=== PATIENT | male | born 1960 | race Caucasian/White ===

== ENCOUNTER 2017-05-26 11:45 | Inpatient (IN) | payer BC ==
[2017-05-26] VITALS (13 sets, daily range): BP systolic 115–152; BP diastolic 67–97
[~2017-05-26] VITALS: Ht 177.8 cm; Wt 87.7 kg
[2017-05-26 12:49] LABS: BASOPHILS % (AUTO) 0.3 % (0-1); EOSINOPHILS # (AUTO) 0.2 X10'3 (0-0.9); EOSINOPHILS % (AUTO) 2.8 % (0-6); HEMATOCRIT 42.6 % (42.0-52.0); HEMOGLOBIN 14.9 g/dl (14.0-17.9); LYMPHOCYTES # (AUTO) 1.6 X10'3 (1.1-4.8); LYMPHOCYTES % (AUTO) 19.1 % (21-51); MEAN CORPUSCULAR HEMOGLOBIN 30.3 PG (27.0-31.0); MEAN CORPUSCULAR HGB CONC 34.9 % (33.0-36.5); MEAN CORPUSCULAR VOLUME 86.9 FL (78-98); MEAN PLATELET VOLUME 9.4 FL (7.4-10.4); MONOCYTES # (AUTO) 0.8 X10'3 (0-0.9); MONOCYTES % (AUTO) 9.3 % (2-12); NEUTROPHILS # (AUTO) 5.8 X10'3 (1.8-7.7); NEUTROPHILS % (AUTO) 68.5 % (42-75); PLATELET COUNT 189 X10'3 (140-440); RED CELL DISTRIBUTION WIDTH 14.4 % (11.5-14.5); WHITE BLOOD COUNT 8.5 X10'3 (4.5-11.0)
[2017-05-26 13:04] LABS: ALANINE AMINOTRANSFERASE 29 U/L (12-78); ALBUMIN 3.6 G/DL (3.4-5.0); ALBUMIN/GLOBULIN RATIO 0.9 (1.1-1.5); ALKALINE PHOSPHATASE 58 IU/L (46-116); ANION GAP 10 (8-16); ASPARTATE AMINO TRANSFERASE 17 U/L (10-37); BILIRUBIN,TOTAL 0.4 MG/DL (0.1-1.0); BLOOD UREA NITROGEN 24 MG/DL (7-18); BUN/CREATININE RATIO 25.5 (5.4-32.0); CALCIUM 8.9 MG/DL (8.5-10.1); CHLORIDE 106 MMOL/L (99-107); CREATININE 0.94 MG/DL (0.60-1.10); GLUCOSE 102 MG/DL (70-104); POTASSIUM 4.1 MMOL/L (3.5-5.1); SODIUM 142 MMOL/L (135-145); TOTAL CARBON DIOXIDE 26.4 MMOL/L (24-32); TOTAL PROTEIN 7.4 G/DL (6.4-8.2); eGFR 82 ML/MIN
[2017-05-26 13:12] LABS: CLARITY,URINE CLEAR (Clear); COLOR,URINE YELLOW (Yellow); GLUCOSE, URINE NEGATIVE (Neg); KETONES,URINE NEGATIVE (Neg); LEUKOCYTE ESTERASE ,URINE NEGATIVE (Neg); NITRITES, URINE NEGATIVE (Neg); OCCULT BLOOD,URINE NEGATIVE (Neg); PROTEIN,URINE NEGATIVE (Neg)
[2017-05-26 13:21] LABS: UA COLLECTION TYPE VOIDED
[2017-05-26 13:31] LABS: LIPASE 76 U/L (73-393)
[2017-05-26] MEDS ORDERED: normal saline 1000ml 1,000 ML IV ONE (14:58)
[2017-05-26] MEDS ORDERED: piperacillin/tazo 3.375gm/50ml 50 ML IV ONE (15:00)
[2017-05-26] MEDS ORDERED: normal saline 1000ML IV soln IVB ONE (15:00)
[2017-05-26] MEDS ORDERED: magnesium 2GM in 50ml NS 50 ML IV PRN (15:15)
[2017-05-26] MEDS ORDERED: HYDROmorphone 1 mg/ml syringe IV PRN (15:15)
[2017-05-26] MEDS ORDERED: magnesium 4gm in 100ml NS 100 ML IV PRN (15:15)
[2017-05-26] MEDS ORDERED: potassium Cl 40MEQ/NS 500ml 500 ML IV PRN ×2 (15:15)
[2017-05-26] MEDS ORDERED: ondansetron/PF 4mg/2ml inj IV PRN ×3 (15:15→18:05)
[2017-05-26] MEDS ORDERED: mag hydrox/Alum hydrox/simeth 30ml oral suspension PO PRN (15:15)
[2017-05-26] MEDS ORDERED: magnesium hydroxide 30ml (MOM) UD suspension PO PRN (15:15)
[2017-05-26] MEDS ORDERED: potassium Cl 20 mEq SR tablet PO PRN ×2 (15:15)
[2017-05-26] MEDS ORDERED: magnesium Cl slow-release 64mg tablet PO PRN (15:15)
[2017-05-26] MEDS ORDERED: ATOR40TA PO (15:24)
[2017-05-26] MEDS: metroNIDAZOLE-Flagyl 500mg/NS 100 ML IV SCH ×2 (15:50→23:34)
[2017-05-26] MEDS: normal saline 1000ml 1,000 ML IV SCH ×2 (15:50→21:07)
[2017-05-26] MEDS ORDERED: BUPIVAcaine/PF 2.5 mg/ml (0.25%) 30ml vial ONE (16:23)
[2017-05-26] MEDS ORDERED: ringers solution, lacted 1,000 ML IV SCH (16:37)
[2017-05-26] MEDS ORDERED: meperidine/PF 50mg/ml syringe IV PRN ×3 (16:40)
[2017-05-26] MEDS ORDERED: proCHLORperazine 10 MG/2 ml inj IV PRN (16:40)
[2017-05-26] MEDS ORDERED: morphine 2 MG/ML inj. syringe IV PRN ×2 (16:40)
[2017-05-26] MEDS ORDERED: sevoflurane 250ml liquid IH ONE (16:53)
[2017-05-26] MEDS ORDERED: neostigmine methylsulfate 1 MG/ML 10ml vial ONE (16:53)
[2017-05-26] MEDS ORDERED: glycopyrrolate 0.2mg/ml inj ONE (16:53)
[2017-05-26] MEDS ORDERED: fentaNYL/PF 50MCG/1 ML 2ML syringe ONE (16:58)
[2017-05-26] MEDS ORDERED: midazolam 2 mg/2 ml injection ONE (16:58)
[2017-05-26] MEDS ORDERED: propofol inj 20 ML IV ONE (17:08)
[2017-05-26] MEDS ORDERED: ceFOXitin 1000 MG inj ONE ×2 (17:08)
[2017-05-26] MEDS ORDERED: rocuronium 10mg/ml inj IV ONE (17:08)
[2017-05-26] MEDS ORDERED: ketorolac tromethamine 15mg/ml inj. IV PRN (18:05)
[2017-05-26] MEDS ORDERED: HYDROmorphone inj. 0.5 MG/0.5 ML DISP.SYRIN IV ONE (18:05)
[2017-05-26] MEDS: HYDROmorphone inj. 0.5 MG/0.5 ML DISP.SYRIN IV PRN (19:15)
[2017-05-26] MEDS ORDERED: ceFOXitin 2 GM ADDvantage bag 100 ML IV SCH (20:00)
[2017-05-26] MEDS ORDERED: non-formulary drug (Atorvastatin Calcium* (Lipitor*) 1 TABLET) PO SCH (21:00)
[2017-05-26] MEDS: atorvastatin 20mg tablet PO SCH (21:03)
[2017-05-26] MEDS: levoFLOXACIN-Levaquin 500mg/D5 100 ML IV SCH (21:03)
[2017-05-27] VITALS: BP 115/65
[2017-05-27] MEDS: ceFOXitin 1 GM ADDVANTAGE BAG 1,000 MG in normal saline 100ml IV soln 100 ML IV SCH ×2 (01:24→12:00)
[2017-05-27 04:00] VITALS: BP 138/74
[2017-05-27 04:48] LABS: BASOPHILS % (AUTO) 0.5 % (0-1); EOSINOPHILS # (AUTO) 0.2 X10'3 (0-0.9); EOSINOPHILS % (AUTO) 1.8 % (0-6); HEMATOCRIT 37.2 % (42.0-52.0); HEMOGLOBIN 12.8 g/dl (14.0-17.9); LYMPHOCYTES % (AUTO) 10.9 % (21-51); MEAN CORPUSCULAR HEMOGLOBIN 30.2 PG (27.0-31.0); MEAN CORPUSCULAR HGB CONC 34.4 % (33.0-36.5); MEAN CORPUSCULAR VOLUME 87.8 FL (78-98); MEAN PLATELET VOLUME 8.9 FL (7.4-10.4); MONOCYTES # (AUTO) 0.8 X10'3 (0-0.9); MONOCYTES % (AUTO) 8.5 % (2-12); NEUTROPHILS # (AUTO) 7.2 X10'3 (1.8-7.7); NEUTROPHILS % (AUTO) 78.3 % (42-75); PLATELET COUNT 171 X10'3 (140-440); RED BLOOD COUNT 4.24 X10'6 (4.70-6.10); RED CELL DISTRIBUTION WIDTH 14.1 % (11.5-14.5); WHITE BLOOD COUNT 9.2 X10'3 (4.5-11.0)
[2017-05-27 05:21] LABS: ALANINE AMINOTRANSFERASE 27 U/L (12-78); ALBUMIN 2.9 G/DL (3.4-5.0); ALBUMIN/GLOBULIN RATIO 0.9 (1.1-1.5); ALKALINE PHOSPHATASE 47 IU/L (46-116); ANION GAP 9 (8-16); ASPARTATE AMINO TRANSFERASE 17 U/L (10-37); BILIRUBIN,TOTAL 0.5 MG/DL (0.1-1.0); BLOOD UREA NITROGEN 18 MG/DL (7-18); BUN/CREATININE RATIO 16.8 (5.4-32.0); CHLORIDE 107 MMOL/L (99-107); CREATININE 1.07 MG/DL (0.60-1.10); GLUCOSE 115 MG/DL (70-104); MAGNESIUM 1.7 MG/DL (1.5-2.4); POTASSIUM 3.9 MMOL/L (3.5-5.1); SODIUM 141 MMOL/L (135-145); TOTAL CARBON DIOXIDE 25.1 MMOL/L (24-32); TOTAL PROTEIN 6.1 G/DL (6.4-8.2); eGFR 71 ML/MIN
[2017-05-27] MEDS: metroNIDAZOLE-Flagyl 500mg/NS 100 ML IV SCH ×2 (07:08→16:00)
[2017-05-27 07:52] VITALS: BP 135/74
[2017-05-27] MEDS: K and/or MAG REPLACEMENT MC SCH (08:00)
[2017-05-27] MEDS: levoFLOXACIN-Levaquin 500mg/D5 100 ML IV SCH (08:42)
[2017-05-27] MEDS: HYDROmorphone inj. 0.5 MG/0.5 ML DISP.SYRIN IV PRN (09:00)
[2017-05-27 11:00] VITALS: BP 122/75
[2017-05-27] MEDS: normal saline 1000ml 1,000 ML IV SCH (11:12)
[2017-05-27] MEDS: tamsulosin 0.4mg capsule PO SCH ×2 (12:00→20:11)
[2017-05-27 18:00] VITALS: BP 138/69
[2017-05-27] MEDS ORDERED: aspirin 325mg tablet PO SCH (18:00)
[2017-05-27] MEDS ORDERED: aspirin 81mg tab.chew PO SCH (18:57)
[2017-05-27] MEDS ORDERED: ibuprofen 200mg tablet PO PRN (20:00)
[2017-05-27] MEDS: atorvastatin 20mg tablet PO SCH (20:09)
[2017-05-28] VITALS: BP 115/66
[2017-05-28 05:26] LABS: BASOPHILS % (AUTO) 0.3 % (0-1); EOSINOPHILS # (AUTO) 0.3 X10'3 (0-0.9); EOSINOPHILS % (AUTO) 4.4 % (0-6); HEMATOCRIT 40.2 % (42.0-52.0); HEMOGLOBIN 14.1 g/dl (14.0-17.9); LYMPHOCYTES # (AUTO) 1.6 X10'3 (1.1-4.8); LYMPHOCYTES % (AUTO) 20.6 % (21-51); MEAN CORPUSCULAR HEMOGLOBIN 30.5 PG (27.0-31.0); MEAN CORPUSCULAR VOLUME 87.1 FL (78-98); MEAN PLATELET VOLUME 9.3 FL (7.4-10.4); MONOCYTES # (AUTO) 0.7 X10'3 (0-0.9); NEUTROPHILS # (AUTO) 5.2 X10'3 (1.8-7.7); NEUTROPHILS % (AUTO) 65.7 % (42-75); PLATELET COUNT 181 X10'3 (140-440); RED BLOOD COUNT 4.62 X10'6 (4.70-6.10); RED CELL DISTRIBUTION WIDTH 14.2 % (11.5-14.5); WHITE BLOOD COUNT 7.9 X10'3 (4.5-11.0)
[2017-05-28 05:51] LABS: ALANINE AMINOTRANSFERASE 20 U/L (12-78); ALBUMIN 2.9 G/DL (3.4-5.0); ALBUMIN/GLOBULIN RATIO 0.8 (1.1-1.5); ALKALINE PHOSPHATASE 52 IU/L (46-116); ANION GAP 8 (8-16); ASPARTATE AMINO TRANSFERASE 12 U/L (10-37); BILIRUBIN,TOTAL 0.6 MG/DL (0.1-1.0); BLOOD UREA NITROGEN 11 MG/DL (7-18); BUN/CREATININE RATIO 12.5 (5.4-32.0); CALCIUM 8.5 MG/DL (8.5-10.1); CHLORIDE 108 MMOL/L (99-107); CREATININE 0.88 MG/DL (0.60-1.10); GLUCOSE 99 MG/DL (70-104); MAGNESIUM 2.1 MG/DL (1.5-2.4); SODIUM 144 MMOL/L (135-145); TOTAL CARBON DIOXIDE 28.2 MMOL/L (24-32); TOTAL PROTEIN 6.5 G/DL (6.4-8.2); eGFR 89 ML/MIN
[2017-05-28] MEDS: levoFLOXACIN-Levaquin 500mg/D5 100 ML IV SCH (08:00)
[2017-05-28] MEDS: K and/or MAG REPLACEMENT MC SCH (08:00)
[2017-05-28] MEDS ORDERED: enoxaparin 40mg/0.4ml syringe SUBCUT SCH (08:00)
[2017-05-28 09:10] VITALS: BP 125/73
[2017-05-28 12:14] VITALS: BP 133/68
== END 2017-05-28 13:40 | disposition home or self-care (01) | DRG 342 ==
LOC: ER 11:45 → ED HOLD 15:12 → SUR 3N 19:06
PROVIDERS: ADMIT Internal Medicine; ATTEND Family Medicine
PROC: 0DTJ4ZZ Resection of Appendix, Percutaneous Endoscopic Approach (ICD-10-PCS; principal; 2017-05-26 16:53)
DX: K35.80 Unspecified acute appendicitis (principal); K56.7 Ileus, unspecified; K66.8 Other specified disorders of peritoneum; E78.00 Pure hypercholesterolemia, unspecified; R33.9 Retention of urine, unspecified; E78.5 Hyperlipidemia, unspecified; K21.9 Gastro-esophageal reflux disease without esophagitis; K57.90 Diverticulosis of intestine, part unspecified, without perforation or abscess without bleeding; Z88.5 Allergy status to narcotic agent; Z79.899 Other long term (current) drug therapy
CPT/HCPCS: 99285; Z7506; 36415; 71045; 74176; 80053; 81003; 83690; 83735; 84484; 85025; 85610; 86885; 86900; 86901; 87070; 93005; A4315; A4353; A6251; A7000; J0694; J1170; J1650; J1885; J1956; J2250; J2270; J2543; J2704; J2710; J3010; J3490; J7030; J7120

== ENCOUNTER 2017-08-15 23:14 | Emergency (ER) | payer BC ==
[~2017-08-15] VITALS: Ht 180.3 cm; Wt 88.0 kg
[~2017-08-15 23:14] MED LIST: ATOR40TA PO
[2017-08-16] MEDS ORDERED: tamsulosin 0.4mg capsule PO SCH (01:25)
[2017-08-16] MEDS ORDERED: ALFU10TA10 PO (01:32)
[2017-08-16 01:54] VITALS: BP 120/68
== END 2017-08-16 01:57 | disposition home or self-care (01) ==
LOC: ER 23:14
DX: R33.9 Retention of urine, unspecified (principal); R10.30 Lower abdominal pain, unspecified; E78.00 Pure hypercholesterolemia, unspecified; K21.9 Gastro-esophageal reflux disease without esophagitis; Z90.49 Acquired absence of other specified parts of digestive tract; Z98.890 Other specified postprocedural states; Z88.5 Allergy status to narcotic agent; Z79.899 Other long term (current) drug therapy
CPT/HCPCS: 51702; 99284; A4315